=== PATIENT | male | born 1950 | race Caucasian/White ===

== ENCOUNTER 2017-07-19 12:11 | Inpatient (IN) | payer MEDICARE, OTHER ==
[~2017-07-19] VITALS: Ht 175.3 cm; Wt 86.2 kg
[~2017-07-19 12:11] MED LIST: ACET325 PO; ASPI325 PO; CHOL10002 PO; DOCU100; FISH OIL 1,0001 EAC2 PO; Ginkgo Biloba120 MG PO; LOSA25 PO; NAPR220 PO; OXYC5 PO; PINE BARK EXTRACT PO
[2017-08-01] MEDS ORDERED: OXYC5 PO (12:40)
[2017-08-01] MEDS ORDERED: ASPI325EC PO (15:09)
[2017-08-01] MEDS ORDERED: ACET500 PO (15:10)
[2017-08-02 04:53] LABS: BASOPHILS ABSOLUTE AUTO 0.01 K/mm3 (0.00-0.23); BASOPHILS PERCENT AUTO 0 % (0-2); EOSINOPHILS ABSOLUTE AUTO 0.02 K/mm3 (0.00-0.68); EOSINOPHILS PERCENT AUTO 0 % (0-6); Hematocrit 37.7 % (37.0-53.0); Hemoglobin 12.8 g/dL (13.5-17.5); IMMATURE GRAN ABSOLUTE AUTO 0.02 K/mm3 (0.00-0.10); IMMATURE GRAN PERCENT AUTO 0 % (0-1); LYMPHOCYTES PERCENT AUTO 14 % (21-46); MONOCYTES ABSOLUTE AUTO 1.26 K/mm3 (0.16-1.47); MONOCYTES PERCENT AUTO 10 % (4-13); Mean Corpuscular HGB 30.5 pg (26.0-34.0); Mean Corpuscular Volume 90 fL (80-100); Mean Platelet Volume 9.7 fL (9.1-12.4); NEUTROPHILS ABSOLUTE AUTO 9.68 K/mm3 (1.96-9.15); NEUTROPHILS PERCENT AUTO 76 % (41-73); Platelet Count 155 K/mm3 (150-400); RDW Coefficient Variation 12.4 % (11.7-14.2); RDW Standard Deviation 40.8 fL (35.1-46.3); Red Blood Cell Count 4.19 M/mm3 (4.30-5.90); White Blood Cell Count 12.79 K/mm3 (4.00-11.30)
[2017-08-02 05:24] LABS: Magnesium, Blood 2.2 mg/dL (1.6-2.4)
[2017-08-02 05:25] LABS: Anion Gap 7 mmol/L (6-16); Blood Urea Nitrogen 15 mg/dL (8-24); Bun/Creatinine Ratio 18.1 (12.0-20.0); CO2, Blood 25 mmol/L (21-32); Calcium, Blood 7.9 mg/dL (8.5-10.1); Chloride, Blood 107 mmol/L (98-108); Creatinine, Blood 0.83 mg/dL (0.60-1.20); Glomerular Filtration Rate >60 (60-); Glucose, Blood 106 mg/dL (70-99); Potassium, Blood 4.3 mmol/L (3.5-5.5); Sodium, Blood 139 mmol/L (136-145)
== END 2017-08-02 14:00 | disposition home or self-care (01) | DRG 470 ==
LOC: SURS 08-01 06:03 → PRE IP 08-01 07:30 → SURS 08-01 11:50
PROVIDERS: Orthopaedic Surgery
PROC: BQ14ZZZ Fluoroscopy of Left Femur (ICD-10-PCS; 2017-08-01)
PROC: 0SRB04A Replacement of Left Hip Joint with Ceramic on Polyethylene Synthetic Substitute, Uncemented, Open Approach (ICD-10-PCS; principal; 2017-08-01 07:30)
DX: M16.12 Unilateral primary osteoarthritis, left hip (principal); I10 Essential (primary) hypertension
CPT/HCPCS: 36415; 72170; 80048; 83735; 85025; 86850; 86900; 86901; 88300; 97110; 97116; 97161; 97530; C1776; G8978; G8979; J0171; J0690; J0735; J1100; J1885; J2250; J2405; J2795; J3010; J7120

== ENCOUNTER → 2018-01-24 | Outpatient (CLI) | payer MEDICARE, OTHER ==
[~2018-01-24] MED LIST changes: +ACET500 PO; +ASPI325EC PO
== END ==
LOC: LAB 12:15 → LAB SHORT 12:15
DX: R31.9 Hematuria, unspecified (principal)
CPT/HCPCS: 87086

== ENCOUNTER → 2021-02-23 | Outpatient (CLI) | payer MEDICARE, OTHER | END | disposition home or self-care (01) | LOC: LAB 19:38 → LAB SHORT 19:38 | DX: I10 Essential (primary) hypertension (principal) | CPT/HCPCS: 82043 ==

== ENCOUNTER 2022-03-25 10:33 | Day surgery (SDC) | payer MEDICARE, OTHER ==
[~2022-03-25] VITALS: Ht 177.8 cm; Wt 95.7 kg
[2022-03-25] MEDS ORDERED: Aspir 8181 MG PO (11:37)
[2022-03-25] MEDS ORDERED: LOSA25 PO (11:38)
--- NOTE | 2022-03-25 13:00 | NUR ---
03/25/22 LUCA DUKE 1MG OF EPI ADDED TO 1ST BAG OF LR(3000MLS) TO USE DURING CASE FOR IRRIGATION 0.05MG OF EPI (1MG/1ML) ADDED TO 10MLS OF ROPIVACAINE 0.5% TO CREATE A LOCAL SOLUTION OF ROPIVACAINE 0.5% WITH EPI 1:200,000. LOCAL POURED ONTO STERILE FIELD FOR USE DURING CASE.
== END 2022-03-25 15:25 | disposition home or self-care (01) ==
LOC: ORSCSDS 10:33
PROVIDERS: Podiatrist Foot & Ankle Surgery
PROC: 0SBF4ZZ Excision of Right Ankle Joint, Percutaneous Endoscopic Approach (ICD-10-PCS; principal; 2022-03-25 12:00)
PROC: 3E0U3GC Introduction of Other Therapeutic Substance into Joints, Percutaneous Approach (ICD-10-PCS; principal; 2022-03-25 12:00)
DX: M19.071 Primary osteoarthritis, right ankle and foot (principal); M25.571 Pain in right ankle and joints of right foot; I10 Essential (primary) hypertension; Z79.899 Other long term (current) drug therapy
CPT/HCPCS: 29897; 29895; 0232T; A9270; J0171; J1100; J2250; J2370; J2405; J2704; J2795; J3010